=== PATIENT | male | born 1965 | race Caucasian/White ===

== ENCOUNTER 2017-06-03 13:51 | Emergency (ER) | payer OTHER ==
[~2017-06-03] VITALS: Ht 162.6 cm; Wt 57.4 kg
[~2017-06-03 13:51] MED LIST: FLEXERIL10 MG PO; MOTRIN800 MG PO
[2017-06-03] MEDS ORDERED: NAPROXEN500 MG PO (18:09)
[2017-06-03 18:21] VITALS: BP 138/78
== END 2017-06-03 18:21 | disposition home or self-care (01) ==
LOC: EME 13:51
DX: S93.402A Sprain of unspecified ligament of left ankle, initial encounter (principal); W00.0XXA Fall on same level due to ice and snow, initial encounter; Z88.0 Allergy status to penicillin
CPT/HCPCS: 73610; 99281; 99284; J1885

== ENCOUNTER 2017-08-22 10:37 | Inpatient (IN) | payer OTHER ==
[~2017-08-22] VITALS: Ht 162.6 cm; Wt 62.0 kg
[~2017-08-22 10:37] MED LIST changes: +NAPROXEN500 MG PO
[2017-08-22 12:01] LABS: HEMATOCRIT 41.8 % (38.0-50.0); HEMOGLOBIN 14.1 G/DL (12.5-16.6); MCH 31.3 PG (29.0-34.0); MCHC 33.7 G/DL (30.0-36.0); MCV 92.7 FL (86-99); RBC DIS.WIDTH-SD 44.1 % (39-53); RED BLOOD COUNT 4.51 M/uL (4.00-5.50); WHITE BLOOD COUNT 16.1 K/uL (4.1-10.2)
[2017-08-22 12:18] LABS: CHLORIDE 104 mEq/L (99-109); POTASSIUM 4.4 mEq/L (3.7-5.4); SODIUM 137 mEq/L (136-147)
[2017-08-22 12:22] LABS: TOTAL BILIRUBIN 0.7 mg/dL (0.0-1.0)
[2017-08-22 12:25] LABS: AST (GOT) 16 IU/L (2-34)
[2017-08-22 12:27] LABS: APPEARANCE CLEAR ((CLEAR)); BILIRUBIN NEGATIVE; BLOOD NEGATIVE; COLOR STRAW ((YELLOW)); GLUCOSE (STRIP) NEGATIVE; KETONES NEGATIVE; LEUKOCYTES NEGATIVE; NITRITE NEGATIVE; PROTEIN (STRIP) NEGATIVE; SPECIFIC GRAVITY 1.004 (1.000-1.030); UCUL ADDED? NO; UROBILINOGEN 0.2 MG/DL (0.2-1.0)
[2017-08-22 12:32] LABS: ALBUMIN 3.8 g/dL (3.2-4.8)
[2017-08-22 12:34] LABS: GLUCOSE 106 mg/dL (70-99); TOTAL PROTEIN 7.1 g/dL (6.4-8.3)
[2017-08-22 12:37] LABS: ALKALINE PHOSPHATASE 72 IU/L (3-129)
[2017-08-22 12:38] LABS: CREATININE 0.8 mg/dL (0.6-1.3); GFR ESTIMATE (CALCULATED) > 59 mL/min/ (58.99-99999)
[2017-08-22 12:39] LABS: UREA NITROGEN (BUN) 10 mg/dL (9-23)
[2017-08-22 12:41] LABS: ALT (GPT) 25 IU/L (3-49)
[2017-08-22 12:44] LABS: PLAT.SUFFICIENCY ADEQUATE; PLATELET COUNT 294 K/uL (156-360)
[2017-08-22 13:54] LABS: LIPASE 12 U/L (1.0-51.0)
[2017-08-22] MEDS ORDERED: ADVIL,NUPRIN,M200 MG PO (15:56)
[2017-08-22 20:47] VITALS: BP 124/69
[2017-08-22 23:28] VITALS: BP 122/64
[2017-08-23 03:27] VITALS: BP 100/63
[2017-08-23 07:19] LABS: HEMATOCRIT 37.7 % (38.0-50.0); HEMOGLOBIN 12.2 G/DL (12.5-16.6); MCH 30.7 PG (29.0-34.0); MCHC 32.4 G/DL (30.0-36.0); RBC DIS.WIDTH-SD 45.8 % (39-53); RED BLOOD COUNT 3.97 M/uL (4.00-5.50)
[2017-08-23 07:40] LABS: INTER. NORMALIZED RATIO 1.1
[2017-08-23 07:42] LABS: CHLORIDE 107 MEQ/L (99-109); CREATININE 0.8 MG/DL (0.6-1.3); GFR ESTIMATE (CALCULATED) > 59 mL/min/ (58.99-99999); GLUCOSE 96 mg/dL (70-99); POTASSIUM 4.6 MEQ/L (3.7-5.4); SODIUM 138 MEQ/L (136-147); UREA NITROGEN (BUN) 8 mg/dL (9-23)
[2017-08-23 07:43] LABS: PTT 28.1 SEC (25-37)
[2017-08-23 07:48] LABS: PLAT.SUFFICIENCY ADEQUATE; PLATELET COUNT 317 K/uL (156-360)
[2017-08-23 08:29] VITALS: BP 123/60
[2017-08-23 12:19] VITALS: BP 117/65
[2017-08-23 16:09] VITALS: BP 124/69
[2017-08-23 23:55] VITALS: BP 118/64
[2017-08-24 06:05] LABS: HEMATOCRIT 35.6 % (38.0-50.0); HEMOGLOBIN 11.9 G/DL (12.5-16.6); MCH 31.1 PG (29.0-34.0); MCHC 33.4 G/DL (30.0-36.0); PLATELET COUNT 317 K/uL (156-360); RBC DIS.WIDTH-CV 13.1 % (11.8-14.6); RBC DIS.WIDTH-SD 44.3 % (39-53); RED BLOOD COUNT 3.83 M/uL (4.00-5.50); WHITE BLOOD COUNT 7.6 K/uL (4.1-10.2)
[2017-08-24 08:24] VITALS: BP 132/69
[2017-08-24 16:35] VITALS: BP 143/79
[2017-08-24 23:50] VITALS: BP 149/67
[2017-08-25 05:53] LABS: BASOPHIL (%) 1.3 % (0-1); BASOPHIL COUNT 0.1 K/uL (0-0.1); EOSINOPHIL (%) 4.1 % (0-5); EOSINOPHIL COUNT 0.3 K/uL (0-0.3); HEMATOCRIT 39.6 % (38.0-50.0); HEMOGLOBIN 12.6 G/DL (12.5-16.6); IMMATURE GRANULOCYTE (%) 0.5 % (0.0-0.7); LYMPHOCYTE COUNT 2.2 K/uL (1.0-2.8); MCH 29.6 PG (29.0-34.0); MCHC 31.8 G/DL (30.0-36.0); MONOCYTE (%) 13.8 % (3-12); MONOCYTE COUNT 1.1 K/uL (0-0.8); NEUTROPHIL (%) 52.3 % (45-76); NEUTROPHIL COUNT 4.2 K/uL (1.8-6.4); PLATELET COUNT 386 K/uL (156-360); RBC DIS.WIDTH-CV 12.8 % (11.8-14.6); RBC DIS.WIDTH-SD 43.9 % (39-53); RED BLOOD COUNT 4.26 M/uL (4.00-5.50)
[2017-08-25 06:17] LABS: CHLORIDE 108 MEQ/L (99-109); CREATININE 0.9 MG/DL (0.6-1.3); GFR ESTIMATE (CALCULATED) > 59 mL/min/ (58.99-99999); GLUCOSE 104 mg/dL (70-99); POTASSIUM 4.1 MEQ/L (3.7-5.4); SODIUM 141 MEQ/L (136-147); UREA NITROGEN (BUN) 5 mg/dL (9-23)
[2017-08-25 07:55] VITALS: BP 148/82
[2017-08-25 16:02] VITALS: BP 131/84
[2017-08-25 19:44] VITALS: BP 128/78
[2017-08-26 00:36] VITALS: BP 130/82
[2017-08-26 05:33] LABS: HEMATOCRIT 42.9 % (38.0-50.0); MCH 30.7 PG (29.0-34.0); MCHC 32.6 G/DL (30.0-36.0); MCV 94.1 FL (86-99); PLATELET COUNT 461 K/uL (156-360); RBC DIS.WIDTH-CV 13.2 % (11.8-14.6); RED BLOOD COUNT 4.56 M/uL (4.00-5.50); WHITE BLOOD COUNT 10.2 K/uL (4.1-10.2)
[2017-08-26 08:25] VITALS: BP 130/69
[2017-08-26 12:30] VITALS: BP 158/86
[2017-08-26 16:19] VITALS: BP 121/67
[2017-08-26] MEDS ORDERED: FAMOTIDINE20 MG PO (17:22)
[2017-08-26] MEDS ORDERED: CIPROFLOXACIN500 M1 PO (17:22)
[2017-08-26] MEDS ORDERED: MIRALAX17 GM PO (17:22)
== END 2017-08-26 17:53 | disposition home or self-care (01) | DRG 392 ==
LOC: EME 10:37 → 3EAST 15:47 → EDOF 15:47 → ENRESERV 15:49 → 3EAST 20:14
PROVIDERS: Family Medicine Sports Medicine; Surgery
DX: K57.20 Diverticulitis of large intestine with perforation and abscess without bleeding (principal); B19.20 Unspecified viral hepatitis C without hepatic coma; K21.9 Gastro-esophageal reflux disease without esophagitis; F10.10 Alcohol abuse, uncomplicated; F17.210 Nicotine dependence, cigarettes, uncomplicated; Z86.010 Personal history of colon polyps
CPT/HCPCS: 74177; 80048; 80053; 81003; 83605; 83690; 85025; 85027; 85610; 85730; 87040; 90686; 99281; 99285; J0744; J1650; J2270; J3370; J7030; J7120; S0030